=== PATIENT | female | born 1995 | race African-American/Black ===

== ENCOUNTER 2018-04-30 18:18 | Emergency (ER) | payer OTHER ==
[2018-04-30 18:22] VITALS: BP 127/76; PULSE 82; TEMP 98.2; BMI 22.6
--- NOTE | 2018-04-30 18:54 | PDOC ---
History of Present Illness - General Chief Complaint: Pain, Acute Stated Complaint: STOMACH PAIN Time Seen by Provider: 04/30/18 18:54 - History of Present Illness Initial Comments: 22 year old female with history of migraines presenting with right sided abdominal pain for the past two weeks. Describes the pain as sharp RLQ and occasionally RUQ, worse with movement, and better with rest. Her LMP was two weeks prior and she is not sexually active (claims to be a virgin). Patient denies any nausea, vomiting, diarrhea, urinary symptoms, blod clots, recent travel, exogenous hormone intake, chest pain, SOB, or other symptoms. 04/30/18 20:20 Past History - Past Medical History Allergies/Adverse Reactions: Allergies Allergy/AdvReac Type Severity Reaction Status Date / Time No Known Allergies Allergy Verified 04/30/18 18:18 Home Medications: Ambulatory Orders NK [No Known Home Medication] 04/30/18 COPD: No - Suicide/Smoking/Psychosocial Hx Smoking History: Never smoked Review of Systems - Review of Systems Constitutional: No: Chills, Diaphoresis, Fever HEENTM: No: Blurred Vision, Tearing Respiratory: No: Cough, Orthopnea, Productive cough Cardiac (ROS): No: Chest Pain, Edema, Irregular Heart Rate ABD/GI: No: Abd. Pain w/ defecation, Diarrhea, Nausea, Vomiting : No: Burning, Dysuria, Discharge Musculoskeletal: No: Back Pain, Gout, Joint Pain Integumentary: No: Erythema, Flushing, Lesions, Lumps Neurological: No: Headache, Numbness, Paresthesia Psychiatric: No: Anxiety, Depression Endocrine: No: Increased Thirst, Increased Urine Hematologic/Lymphatic: No: Anemia, Blood Clots, Easy Bleeding *Physical Exam - Vital Signs Last Vital Signs Temp Pulse Resp BP Pulse Ox 98.2 F 82 18 127/76 100 04/30/18 18:18 04/30/18 18:18 04/30/18 18:18 04/30/18 18:18 04/30/18 18:18 - Physical Exam General Appearance: Yes: Nourished, Appropriately Dressed. No: Apparent Distress HEENT: positive: EOMI, ADRIANE, Normal ENT Inspection, Normal Voice Neck: positive: Trachea midline, Normal Thyroid, Supple. negative: Tender, Rigid Respiratory/Chest: positive: Lungs Clear, Normal Breath Sounds. negative: Chest Tender, Respiratory Distress, Accessory Muscle Use Cardiovascular: positive: Regular Rhythm, Regular Rate Gastrointestinal/Abdominal: positive: Normal Bowel Sounds, Tender (rlq pain, epigastric pain), Flat, Soft Lymphatic: negative: Adenopathy, Tenderness Musculoskeletal: positive: Normal Inspection. negative: CVA Tenderness Extremity: positive: Normal Capillary Refill, Normal Inspection, Normal Range of Motion. negative: Tender Integumentary: positive: Normal Color, Dry, Warm Neurologic: positive: Fully Oriented, Alert, Normal Mood/Affect, Normal Response , Motor Strength 12/05 ED Treatment Course - LABORATORY CBC & Chemistry Diagram: 04/30/18 19:30 04/30/18 19:30 Medical Decision Making - Medical Decision Making 22 year old female presenting with 2 week right sided abdominal pain worse with movement. Kidney, bladder, and pelvic US all negative for pathology so this is likely consistent with her previous diagnosis of muscular pain. Pain improved with acetaminophen. Not likely appendicitis, diverticulitis, nephrolithiasis, or cholecystitis. Will DC with Tylenol and Motrin use instructions. 04/30/18 23:55 *DC/Admit/Observation/Transfer Diagnosis at time of Disposition: Abdominal pain Qualifiers: Abdominal location: right lower quadrant Qualified Code(s): R10.31 - Right lower quadrant pain Ovarian cyst Qualifiers: Laterality: bilateral Qualified Code(s): N83.201 - Unspecified ovarian cyst, right side; N83.202 - Unspecified ovarian cyst, left side - Discharge Dispostion Disposition: HOME Condition at time of disposition: Improved Decision to Admit order: No - Referrals Referrals: Camille Saini [Primary Care Provider] - - Patient Instructions Printed Discharge Instructions: DI for Ovarian Cyst, DI for Abdominal Pain- Adult Additional Instructions: Please use Tylenol and Motrin for the pain. Please follow up with your OBGyn doctor within one week. You do have small cysts in both of your ovaries so it is possible that your pain is caused by this. Please come back to the ED if you have any new or worsening symptoms. - Post Discharge Activity
[2018-04-30] MEDS ORDERED: ACETAMINOPHEN 500 MG TABLET (FP) PO ONE (19:28)
[2018-04-30 19:45] LABS: BASO % 1.1 % (0-2.0); EOS % 0.5 % (0-4.5); HEMATOCRIT 35.7 % (32.4-45.2); HEMOGLOBIN 11.7 GM/dL (10.7-15.3); LYMPH % 27.9 % (8-40); MCH 29.2 pg (25.7-33.7); MCHC 32.6 g/dl (32.0-36.0); MEAN CELL VOLUME 89.6 fl (80-96); MEAN PLT VOLUME 7.1 fl (7.5-11.1); MONO % 10.1 % (3.8-10.2); NEUT % 60.4 % (42.8-82.8); PLATELET COUNT 359 K/MM3 (134-434); RBC 3.99 M/mm3 (3.60-5.2); RDW 13.6 % (11.6-15.6); WHITE BLOOD COUNT 7.4 K/mm3 (4.0-10.0)
[2018-04-30 19:47] LABS: URINE APPEARANCE SLCLOUDY; URINE BILIRUBIN NEGATIVE (<2.0 mg/dL); URINE COLOR YELLOW; URINE GLUCOSE (UA) NEGATIVE (NEGATIVE); URINE KETONE NEGATIVE (NEGATIVE); URINE NITRITE NEGATIVE (NEGATIVE); URINE PROTEIN NEGATIVE (NEGATIVE); URINE UROBILINOGEN NEGATIVE mg/dL (0.2-1.0)
[2018-04-30 19:50] LABS: HCG,QUALITATIVE URINE Negative
[2018-04-30 19:55] LABS: URINE LEUK ESTERASE 1+ (NEGATIVE)
[2018-04-30 19:59] LABS: EPI CELLS FEW /HPF (FEW); URINE MUCUS RARE
[2018-04-30 20:09] LABS: ALBUMIN 3.6 g/dl (3.4-5.0); ALK PHOS 56 U/L (45-117); AMYLASE 142 U/L (25-115); ANION GAP 10 MMOL/L (8-16); BILIRUBIN,TOTAL 0.1 mg/dL (0.2-1); BLOOD UREA NITROGEN 13 mg/dL (7-18); CALCIUM 9.4 mg/dL (8.5-10.1); CHLORIDE 105 mmol/L (98-107); CO2 26 mmol/L (21-32); CREATININE 0.7 mg/dL (0.55-1.3); GLUCOSE,RANDOM 77 mg/dL (74-106); LIPASE 117 U/L (73-393); POTASSIUM 3.6 mmol/L (3.5-5.1); SGOT/AST 11 U/L (15-37); SGPT/ALT 14 U/L (13-61); SODIUM 142 mmol/L (136-145); TOT PROT 8.4 g/dl (6.4-8.2)
[2018-04-30] MEDS ORDERED: ACETAMINOPHEN 325 MG TABLET (FP) ONE ×2 (20:13→20:19)
--- NOTE | 2018-04-30 20:22 | PDOC ---
Attending Attestation - HPI HPI: 04/30/18 20:37 The patient is a 22 year old female, with a significant past medical history of , who presents to the emergency department with, positional abdominal pain worsened in the right quadrant and epigastrium. The patient was recently worked up at [facility] had an abdominal CT with PO contrast and questionable IV contrast without any pertinent findings. Allergies: NKA Social history: Nonsmoker. Denies EtOH use and recreational drug use. Primary Care Physician: Dr. Camille Saini <Carmelo Arredondo - Last Filed: 04/30/18 20:37> - Resident Resident Name: Safia Sheikh - ED Attending Attestation I have performed the following: I have examined & evaluated the patient, The case was reviewed & discussed with the resident, I agree w/resident's findings & plan, Exceptions are as noted - Physicial Exam PE: 04/30/18 21:19 Patient is awake and alert, well-nourished, in no distress Normocephalic, atraumatic PERRLA, EOMI, no scleral icterus CTA RRR Abdomen is soft, nondistended, minimal right lower pelvic tenderness to deep palpation as well as mild right CVA tenderness to palpation is appreciated; there is no guarding or rebound, no tenderness at McBurney's point - Medical Decision Making 04/30/18 21:20 Patient is a 22-year-old female who presents with right lower pelvic pain for the past 2 weeks as well as right flank discomfort with microscopic hematuria. CBC is within normal limit. Will obtain pelvic and renal ultrasounds to rule out cyst versus hydronephrosis. We'll reassess. 05/01/18 00:04 Patient reassessed. Patient is resting comfortably. Renal ultrasound shows no evidence of hydronephrosis. Pelvic and bladder ultrasound show no evidence of ovarian cysts or free fluid. Patient tolerates by mouth. Do not suspect acute appendicitis at this time. Patient tolerates by mouth. Will discharge with abdominal pain instructions to return immediately for severe right lower quadrant pain, nausea and vomiting. <Link Baez - Last Filed: 05/01/18 00:04> Attestations - Attestations 04/30/18 20:38 Documentation prepared by Carmelo Arredondo, acting as medical insurance coding specialist for Link Baez MD. <Carmelo Arredondo - Last Filed: 04/30/18 20:37>
== END 2018-05-01 00:44 | disposition home or self-care (01) ==
LOC: JER 18:18
DX: R10.31 Right lower quadrant pain (principal); N83.201 Unspecified ovarian cyst, right side; N83.202 Unspecified ovarian cyst, left side
CPT/HCPCS: 36415; 76775-TC; 76856-TC; 80053; 81003; 81015; 82150; 83690; 84703; 85025; 87086; 99282-25

== ENCOUNTER 2019-08-17 18:23 | Emergency (ER) | payer OTHER ==
[2019-08-17] MEDS ORDERED: SODIUM CHLORIDE 1,000 ML IV STA (18:38)
[2019-08-17] MEDS ORDERED: ONDANSETRON 4 MG/2 ML VIAL IVPUSH ONE (18:38)
[2019-08-17] MEDS ORDERED: ACETAMINOPHEN 1000 MG/100 ML VIAL (NON FORMULARY) IVPB ONE (18:38)
[2019-08-17 18:39] VITALS: BMI 19.3
--- NOTE | 2019-08-17 18:39 | PDOC ---
Rapid Medical Evaluation Chief Complaint: Vomiting/Diarrhea Time Seen by Provider: 08/17/19 18:36 Medical Evaluation: Allergies Allergy/AdvReac Type Severity Reaction Status Date / Time No Known Allergies Allergy Verified 04/30/18 18:18 08/17/19 18:37 Pt presents for evaluation of abdominal pain, n/v/d for one day. 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 She is unable to keep anything down. Exam: epigastric tenderness. NAD Orders: labs, IV Pt to proceed to the ER for evaluation. Discharge Disposition - Diagnosis Vomiting Qualifiers: Vomiting type: unspecified Vomiting Intractability: non-intractable Nausea presence: with nausea Qualified Code(s): R11.2 - Nausea with vomiting, unspecified - Discharge Dispostion Condition at time of disposition: Stable - Referrals - Patient Instructions - Post Discharge Activity
[2019-08-17 19:28] LABS: BASO % 0.5 % (0-2.0); HEMATOCRIT 36.2 % (32.4-45.2); HEMOGLOBIN 11.9 GM/dL (10.7-15.3); LYMPH % 9.5 % (8-40); MCH 29.5 pg (25.7-33.7); MCHC 32.9 g/dl (32.0-36.0); MEAN CELL VOLUME 89.6 fl (80-96); MEAN PLT VOLUME 7.2 fl (7.5-11.1); MONO % 6.7 % (3.8-10.2); NEUT % 83.3 % (42.8-82.8); PLATELET COUNT 360 K/MM3 (134-434); RBC 4.04 M/mm3 (3.60-5.2); WHITE BLOOD COUNT 6.3 K/mm3 (4.0-10.0)
[2019-08-17 19:48] LABS: ALBUMIN 3.5 g/dl (3.4-5.0); BILIRUBIN,TOTAL 0.4 mg/dL (0.2-1); BLOOD UREA NITROGEN 14.7 mg/dL (7-18); CALCIUM 8.7 mg/dL (8.5-10.1); CREATININE 0.7 mg/dL (0.55-1.3); POTASSIUM 3.4 mmol/L (3.5-5.1); TOT PROT 7.8 g/dl (6.4-8.2)
[2019-08-17] MEDS ORDERED: ONDANSETRON 4 MG/2 ML VIAL ONE (20:12)
[2019-08-17 20:17] LABS: EPI CELLS 6.3 /HPF (0-5/HPF); HYALINE CASTS 8 /lpf (0-8); URINE APPEARANCE CLEAR; URINE BILIRUBIN NEGATIVE (NEGATIVE); URINE COLOR YELLOW; URINE GLUCOSE (UA) NEGATIVE (NEGATIVE); URINE KETONE 1+ (NEGATIVE); URINE LEUK ESTERASE NEGATIVE (NEGATIVE); URINE NITRITE NEGATIVE (NEGATIVE); URINE PROTEIN 1+ (NEGATIVE); URINE WBC 4 /hpf (0-5)
[2019-08-17] MEDS ORDERED: ACETAMINOPHEN INJECTION 100 ML IVPB ONE (20:23)
--- NOTE | 2019-08-17 20:34 | PDOC ---
History of Present Illness - General Chief Complaint: Vomiting/Diarrhea Stated Complaint: VOMITTING/DIARRHEA Time Seen by Provider: 08/17/19 18:36 History Source: Patient Exam Limitations: No Limitations Past History - Past Medical History Allergies/Adverse Reactions: Allergies Allergy/AdvReac Type Severity Reaction Status Date / Time No Known Allergies Allergy Verified 08/17/19 19:07 Home Medications: Ambulatory Orders NK [No Known Home Medication] 04/30/18 COPD: No - Immunization History Immunization Up to Date: No - Psycho Social/Smoking Cessation Hx Smoking History: Never smoked Have you smoked in the past 12 months: No Information on smoking cessation initiated: No Hx Alcohol Use: No Drug/Substance Use Hx: No *Physical Exam - Vital Signs Last Vital Signs Temp Pulse Resp BP Pulse Ox 101.8 F H 115 H 18 93/59 L 100 08/17/19 18:36 08/17/19 18:36 08/17/19 18:36 08/17/19 18:36 08/17/19 18:36 - Physical Exam General Appearance: No: Apparent Distress Respiratory/Chest: positive: Lungs Clear, Normal Breath Sounds. negative: Respiratory Distress Cardiovascular: positive: Regular Rhythm, S1, S2, Tachycardia. negative: Murmur Gastrointestinal/Abdominal: positive: Normal Bowel Sounds, Soft. negative: Tender, Distended, Guarding, Rebound Musculoskeletal: negative: CVA Tenderness Integumentary: positive: Normal Color Neurologic: positive: Alert ED Treatment Course - LABORATORY CBC & Chemistry Diagram: 08/17/19 18:48 08/17/19 18:48 - ADDITIONAL ORDERS Additional order review: Laboratory Results 08/17/19 08/17/19 08/17/19 19:41 19:41 18:48 Sodium 139 Potassium 3.4 L Chloride 108 H Carbon Dioxide 24 Anion Gap 7 L BUN 14.7 Creatinine 0.7 Est GFR (CKD-EPI)AfAm 140.55 Est GFR (CKD-EPI)NonAf 121.27 Random Glucose 88 Calcium 8.7 Total Bilirubin 0.4 AST 14 L ALT 18 Alkaline Phosphatase 51 Total Protein 7.8 Albumin 3.5 Lipase 64 L Urine Color Yellow Urine Appearance Clear Urine pH 5.0 Ur Specific Barnard 1.036 H Urine Protein 1+ H Urine Glucose (UA) Negative Urine Ketones 1+ H Urine Blood 3+ H Urine Nitrite Negative Urine Bilirubin Negative Urine Urobilinogen 1.0 Ur Leukocyte Esterase Negative Urine WBC (Auto) 4 Urine Casts (Auto) 8 U Epithel Cells (Auto) 6.3 Urine Bacteria (Auto) 74.0 Urine HCG, Qual Negative 08/17/19 18:48 RBC 4.04 MCV 89.6 MCHC 32.9 RDW 14.0 MPV 7.2 L Neutrophils % 83.3 H D Lymphocytes % 9.5 D Monocytes % 6.7 Eosinophils % 0.0 D Basophils % 0.5 - Medications Given in the ED: ED Medications Discontinued Medications Generic Name Dose Route Start Last Admin Trade Name Addison PRN Reason Stop Dose Admin Acetaminophen 1,000 mg 08/17/19 18:38 08/17/19 20:28 Ofirmev Injection - IVPB 08/17/19 18:39 1,000 mg ONCE ONE Administration Sodium Chloride 1,000 mls @ 1,000 mls/hr 08/17/19 18:38 08/17/19 20:20 Normal Saline - IV 08/17/19 19:37 1,000 mls/hr ASDIR STA Administration Ondansetron HCl 4 mg 08/17/19 18:38 08/17/19 20:20 Zofran Injection IVPUSH 08/17/19 18:39 4 mg ONCE ONE Administration Medical Decision Making - Medical Decision Making 23-year-old female with no significant past medical history presents with 4 episodes of emesis along with one episode of diarrhea today and mild epigastric cramping. Emesis started off being just food and then later became bile. Was unaware of fever until she came to ED. URI symptoms, shortness of breath, chest pain, urinary symptoms. Patient states she is currently on her menstrual cycle. Denies recent travel. 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 Consider gastroenteritis Labs reviewed Mild hypokalemia of 3.4 noted Urine with blood likely from her menstrual cycle Patient just received meds Will reassess 08/17/19 20:31 Repeat vitals improved Patient tolerating PO Feeling better stable for dc 08/17/19 21:35 Discharge - Discharge Information Problems reviewed: Yes Clinical Impression/Diagnosis: Gastroenteritis Condition: Stable Disposition: HOME - Admission No - Additional Discharge Information Prescription Drug Monitoring Program (I-STOP) results: I-STOP not reviewed - Follow up/Referral Referrals: Cmaille Saini [Primary Care Provider] - 2 Days - Patient Discharge Instructions Patient Printed Discharge Instructions: DI for Viral Gastroenteritis -- Adult Additional Instructions: Thank you for choosing [facility]. It was a pleasure taking care of you. Recommend rest Drink at least 3 L of water daily Recommend eating light food such as bananas, rice, applesauce, toast, crackers until feeling better. Would avoid use of dairy products for now. Take Tylenol as needed for fever. Follow-up with your doctor in 2 days Return to the Emergency Department if your symptoms worsen or persist or have other concerning symptoms. - Post Discharge Activity
[2019-08-17 20:56] LABS: URINE RBC 17.3 /hpf (0-4)
[2019-08-17 21:33] VITALS: BP 106/61; PULSE 85; TEMP 99.1
== END 2019-08-17 21:53 | disposition home or self-care (01) ==
LOC: JER 18:23 → SUPCPDRO 18:23 → JER 21:53
PROC: 3E033NZ Introduction of Analgesics, Hypnotics, Sedatives into Peripheral Vein, Percutaneous Approach (ICD-10-PCS; principal; 2019-08-17)
PROC: 3E033GC Introduction of Other Therapeutic Substance into Peripheral Vein, Percutaneous Approach (ICD-10-PCS; 2019-08-17)
DX: K52.9 Noninfective gastroenteritis and colitis, unspecified (principal)
CPT/HCPCS: 36415; 80053; 81003; 83690; 84703; 85025; 87077; 87086; 99282-25; J0131; J7030